=== PATIENT | male | born 1935 | race Caucasian/White ===

== ENCOUNTER → 2024-04-18 08:52 | Outpatient (REF) | payer OTHER, SELFPAY | LOC: HWRAD 08:52 | PROVIDERS: ATTENDING PHYSICIAN Otolaryngology; FAMILY PHYSICIAN Internal Medicine | DX: R22.1 Localized swelling, mass and lump, neck (principal); J32.4 Chronic pansinusitis | CPT/HCPCS: 70491; Q9967 ==

== ENCOUNTER → 2024-08-11 08:13 | Outpatient (REF) | payer OTHER, SELFPAY | LOC: RST 08:13 | PROVIDERS: ATTENDING PHYSICIAN Internal Medicine | DX: R13.12 Dysphagia, oropharyngeal phase (principal) | CPT/HCPCS: 74230; 92611 ==